=== PATIENT | male | born 1990 | race Caucasian/White ===

== ENCOUNTER 2020-11-05 10:32 | Emergency (ER) | payer MEDICAID ==
--- NOTE | 2020-11-05 11:29 | EDM.PDOC ---
ED HPI GENERAL MEDICAL PROBLEM - General Chief Complaint: Lower Extremity Injury/Pain Stated Complaint: RT LOWER LEG PAIN SENT FROM [place] Time Seen by Provider: 11/05/20 11:10 Source of Information: Reports: Patient, RN Notes Reviewed History Limitations: Reports: No Limitations - History of Present Illness INITIAL COMMENTS - FREE TEXT/NARRATIVE: Patient is a 30-year-old male who presents to the ER for the evaluation of his right lower leg pain. He was seen at the walk-in clinic by Dr. Encarnacion, and she sent him here for an ultrasound. Patient states that this started on Friday, he is having pain to his anterior right clifford. He states that the pain is sharp, and seems to worsen in certain positions like plantarflexion. He notes that the pain is 10 out of 10 when he plantar flexes. He was able to ambulate to the exam room without difficulty, states that the pain does seem to improve with nonweightbearing, rest elevation and ice. He is not taking any sort of Tylenol ibuprofen for last few days however he did take an Aleve this morning at around 1 AM he says that this did not seem to help. Patient denies any other sick-like symptoms, fever/chills, cough/shortness of breath, nausea/vomiting/diarrhea. He does not note any history of blood clots. Patient states he is a fairly active person as well. 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[employer]: Reports: NSAIDS Right Leg Pain Score (Numeric/FACES): 4 - Related Data Allergies Allergy/AdvReac Type Severity Reaction Status Date / Time No Known Allergies Allergy Verified 11/05/20 10:52 Home Meds: Home Meds Losartan [Cozaar] 50 mg PO DAILY 11/05/20 [History] Sertraline [Zoloft] 150 mg PO DAILY 11/05/20 [History] methIMAzole [Methimazole] 15 mg PO DAILY 11/05/20 [History] Past Medical History Cardiovascular History: Reports: Hypertension Neurological History: Reports: Migraines Psychiatric History: Reports: Anxiety, Depression Dermatologic History: Reports: Other (See Below) Other Dermatologic History: vitiligo - Past Surgical History HEENT Surgical History: Reports: Oral Surgery, Tonsillectomy Male Surgical History: Reports: Circumcision Social & Family History - Tobacco Use Tobacco Use Status *Q: Never Tobacco User - Caffeine Use Caffeine Use: Reports: Energy Drinks - Recreational Drug Use Recreational Drug Use: No Review of Systems - Review of Systems Review Of Systems: Comprehensive ROS is negative, except as noted in HPI. ED EXAM, GENERAL - Physical Exam Exam: See Below Exam Limited By: No Limitations General Appearance: Alert, WD/WN, No Apparent Distress Respiratory/Chest: No Respiratory Distress, Lungs Clear, Normal Breath Sounds, No Accessory Muscle Use, Chest Non-Tender Cardiovascular: Normal Peripheral Pulses, Regular Rate, Rhythm, No Edema Peripheral Pulses: 2+: Brachial (R), Radial (L) Extremities: Normal Inspection, Normal Capillary Refill, Leg Pain (with dorsiflexion of right foot) Neurological: Alert, Oriented, Normal Cognition, No Motor/Sensory Deficits Psychiatric: Normal Affect, Normal Mood Skin Exam: Warm, Dry, Intact, Normal Color, No Rash Course - Vital Signs Last Recorded V/S: Last Vital Signs Temp 98.7 F 11/05/20 10:46 Pulse 89 11/05/20 10:46 Resp 20 11/05/20 10:46 BP 160/101 H 11/05/20 10:46 Pulse Ox 100 11/05/20 10:46 - Orders/Labs/Meds Orders: Active Orders 24 hr Category Date Time Status VL Duplex Lwr Ext Veins Ltd Rt [US] Stat Exams 11/05/20 11:21 Taken - Re-Assessments/Exams Free Text/Narrative Re-Assessment/Exam: 11/05/20 11:29 Patient presents to the ER for the evaluation of his right leg pain, we will go ahead and get ultrasound to rule out blood clot, as the patient is concerned about that. Nonetheless he is an active person, he could have just strained one of the muscles or ligaments in his leg has rest and ice seems to help relieve most of his pain. 11/05/20 12:59 The patient ultrasound has returned, no sign of DVT is apparent. We will go ahead and discharge the patient home with conservative recommendations have him follow-up with his regular care provider for ongoing management if it does not seem to be getting much better in 7 to 10 days. Departure - Departure Time of Disposition: 13:00 Disposition: Home, Self-Care 01 Condition: Good Clinical Impression: Pain in right lower leg - Discharge Information *PRESCRIPTION DRUG MONITORING PROGRAM REVIEWED*: No *COPY OF PRESCRIPTION DRUG MONITORING REPORT IN PATIENT BIN: No Instructions: Muscle Strain, [id number] Referrals: Jose A Meeks NP [Primary Care Provider] - Forms: ED Department Discharge, ED Return to Work/School Form Additional Instructions: You have been evaluated in the ED for your right anterior leg pain. Your ultrasound demonstrated no sign of a DVT. It is possible you could have strained a muscle or ligament in your anterior leg, causing you pain as it seems to worsen with movement and plantarflexion of her foot. Please use ice as tolerated to the affected area. Please try to elevate the affected area to relieve swelling. You may take Tylenol 500 mg or ibuprofen 600mg q6 hrs for pain relief. Please do so until you have a tolerable level of pain with activity. Do not exceed 4000mg Tylenol or 3200mg ibuprofen in a 24 hour time period. If pain is not much better in 7 to 10 days time, recommend you follow-up with y our regular care provider for ongoing management and further imaging if warranted. Please return to ED if your symptoms should change or worsen. Sepsis Event Note (ED) - Evaluation Sepsis Screening Result: No Definite Risk - Focused Exam Vital Signs: Vital Signs Temp Pulse Resp BP Pulse Ox 11/05/20 10:46 98.7 F 89 20 160/101 H 100 - My Orders Last 24 Hours: My Active Orders 11/05/20 11:21 VL Duplex Lwr Ext Veins Ltd Rt [US] Stat - Assessment/Plan Last 24 Hours: My Active Orders 11/05/20 11:21 VL Duplex Lwr Ext Veins Ltd Rt [US] Stat
--- NOTE | 2020-11-05 15:18 | US ---
Right lower extremity deep venous ultrasound: Duplex and color Doppler evaluation was obtained of the right common femoral, proximal greater saphenous, superficial femoral, popliteal, posterior tibial and peroneal veins. Left common femoral vein was also evaluated. Comparison: No prior venous imaging is available. Findings: Visualized veins show normal phasic flow, augmentation and compression. Impression: 1. Nothing is seen to indicate deep venous thrombosis within the right lower extremity or within the left common femoral vein. Diagnostic code #1 I agree with preliminary report from [facility], finalized on 11/05/20, 1:53 PM CDT, code 1
== END 2020-11-05 13:15 | disposition home or self-care (01) ==
LOC: JD.ED 10:32
DX: M79.661 Pain in right lower leg (principal); I10 Essential (primary) hypertension; Z79.899 Other long term (current) drug therapy
CPT/HCPCS: 93971-26-RT; 93971-RT; 99283; 99283-25

== ENCOUNTER 2021-07-21 11:59 | Emergency (ER) | payer MEDICAID ==
[2021-07-21] MEDS ORDERED: Sodium Chloride 0.9% 10 ML Syringe FLUSH PRN (12:22)
[2021-07-21] MEDS ORDERED: Sodium Chloride 0.9% 1,000 ML IV STA (12:22)
== END 2021-07-21 13:30 | disposition home or self-care (01) ==
LOC: JD.ED 11:59
DX: E05.00 Thyrotoxicosis with diffuse goiter without thyrotoxic crisis or storm (principal); I10 Essential (primary) hypertension; Z79.899 Other long term (current) drug therapy
CPT/HCPCS: 36415; 80053; 84439; 84443; 85025; 86140; 93005; 99284; J3490; J7030; 93010